=== PATIENT | male | born 1955 | race Caucasian/White ===

== ENCOUNTER → 2017-04-18 | Outpatient (CLI) | payer BC ==
--- NOTE | 2017-04-18 10:08 | DIAGNOSTIC IMAGING REPORT ---
L HAND MIN 3 VIEWS ROUTINE HISTORY: 61 years-old Male M25.542 Arthralgia of left hand no injury acute left hand pain with left third finger swelling COMPARISON: None available TECHNIQUE: 3 views of the left hand FINDINGS: Mild radiocarpal, triscaphe and first carpometacarpal osteoarthritis. There is no acute fracture or dislocation. The third finger specifically appears intact with minimal subcortical cystic changes of the third proximal phalangeal head. Mild soft tissue swelling of the third digit. No opaque foreign body. IMPRESSION: Mild soft tissue swelling of the third finger without acute fracture or dislocation. The above report was generated using voice recognition software. It may contain grammatical, syntax or spelling errors. Electronically signed by: Jaspreet Hernandez M.D. 04/18/2017 10:07 AM Dictated Date/Time: 04/18/2017 10:05 AM
== END | disposition home or self-care (01) ==
LOC: C.RADBC 09:37
PROVIDERS: ATTEND Physician Assistant Medical
DX: M25.542 Pain in joints of left hand (principal)